=== PATIENT | male | born 1965 | race Caucasian/White ===

== ENCOUNTER → 2019-11-25 | Outpatient (CLI) | payer OTHER, SELFPAY | END | disposition home or self-care (01) | LOC: MTDU 17:15 | PROVIDERS: PCP Internal Medicine; Referring Provider Nurse Practitioner; Visit Provider Nurse Practitioner | DX: Z20.828 Contact with and (suspected) exposure to other viral communicable diseases (principal) | CPT/HCPCS: 87635; C9803; U0003 ==

== ENCOUNTER 2021-09-13 23:51 | Emergency (ER) | payer OTHER, SELFPAY ==
[2021-09-13 23:51] VITALS: BP 125/92; PULSE 76; RESP 15; TEMP 36.9; O2SAT 99
[2021-09-14 00:21] LABS: Anion Gap 6 (5-15); BUN 15 mg/dL (7-18); BUN/Creat Ratio 13.2 RATIO (10-20); Calcium,Total 8.8 mg/dL (8.5-10.1); Chloride 108 mmol/L (98-107); Creatinine, Serum 1.14 mg/dL (0.70-1.30); EST Glomerular Filtration Rate 71 mL/min (>60); Est Glom Filt Rate - Afr Amer 86 mL/min (>60); Estimated Creatinine Clearance 74.94 ml/min; Glucose 99 mg/dL (74-106); Sodium Level 140 mmol/L (136-145)
[2021-09-14 00:25] LABS: Absolute Lymphocyte Count 2.74 X10^3/uL (0.83-4.51); Absolute Neutrophil Count 7.1 X10^3/uL (2.0-7.7); Basophil# 0.06 X10^3/uL; Basophil% 0.4 % (0-1); Differential Comment SCANNED; Differential Indicated SCAN CRITERIA MET; Eosinophil# 5.05 X10^3/uL; Eosinophils% 31.6 % (0-5); Hematocrit 45.7 % (40-54); Hemoglobin 15.6 g/dL (13.0-16.5); Lymphocyte # 2.74 X10^3/ul (0.83-4.51); Lymphocyte % 17.1 % (19-41); Mean Corp Hgb Conc 34.1 g/dL (32-36); Mean Corpuscular Hgb 30.4 pg (27.0-32.0); Mean Corpuscular Volume 88.9 fL (80-94); Mean Platelet Vol. 8.9 fl (6.2-12.0); Monocyte# 1.03 X10^3/uL; Monocyte% 6.4 % (0-10); NRBC Flagged by Analyzer 0 % (0-5); Neutrophil # 7.06 X10^3/uL (2.7-7.7); Neutrophil % 44.2 % (47-70); POSITIVE DIFFERENTIAL YES; Platelet Count 228 K/mm3 (150-450); RBC Distribution Width CV 12.7 % (11.6-14.6); RBC Distribution Width SD 41.7 fl (35.1-43.9); Red Blood Count 5.14 M/mm3 (4.6-6.2)
[2021-09-14 00:29] LABS: Bacteria 0 SEEN /hpf (None Seen); Color, Urine Yellow (Yellow); Glucose, Dipstick Normal (Normal); Ketone-Dipstick Negative (Negative); Leukocyte Esterase-Dipstick Negative /ul (Negative); Mucous, Urine 0 SEEN /hpf (<or=2+); Nitrite-Dipstick Negative (Negative); Occult Blood-Urine Negative /ul (Negative); Protein-Dipstick Negative (Negative); Red Blood Cells-Urine 0 SEEN /hpf (0-5); Squamous Epithelial Cells - UA 0 SEEN /hpf (0-5); Urine Bilirubin Dipstick Negative (Negative); Urine Clarity Clear (Clear); Urine Urobilinogen Normal (Normal); White Blood Cells 0 SEEN /hpf (0-5)
[2021-09-14] MEDS: Ondansetron 4 MG/2 ML Vial IV (00:31)
[2021-09-14] MEDS: 0.9% Normal Saline 1,000 ML 999 ML IV (00:31)
[2021-09-14] MEDS: Famotidine 200 MG/20 ML MDV 20 MG in 0.9% Normal Saline (Pres. free 8 ML 300 MG IV (00:34)
[2021-09-14 00:49] LABS: AST(SGOT) 19 U/L (15-37); Alanine Aminotransfer ALT/SGPT 35 U/L (16-61); Albumin, Serum 3.8 g/dL (3.2-5.0); Alkaline Phosphatase 77 U/L (45-117); Bilirubin, Direct 0.17 mg/dL (0.00-0.30); Globulin 3.3 g/dL (2.2-4.2); Lipase 175 U/L (73-393); Protein, Total 7.1 g/dL (6.4-8.2)
--- NOTE | 2021-09-14 00:55 | CT_ITS ---
STUDY: CT ABDOMEN AND PELVIS WITH CONTRAST REASON FOR EXAM: Male, 55 years old. abd pain RADIATION DOSAGE (If Supplied By Facility): CTDIvol = ( 19.11 ) mGy, DLP = ( 1934.91 ) mGycm TECHNIQUE: Transaxial images were obtained from the dome of the diaphragm to the symphysis pubis without oral contrast. IV 100mL Isovue-300 was administered. Sagittal and coronal images were reconstructed. Individualized dose optimization techniques were used for this CT. COMPARISON: None. FINDINGS: The visualized lung bases are unremarkable. The visualized portions of the heart are within normal limits. Normal liver. Normal gallbladder and extrahepatic biliary system. Normal spleen. Normal pancreas. Normal bilateral adrenal glands. Normal right kidney. Normal left kidney. Normal visualized stomach. There is thickening of the murphy of small bowel loops in the jejunum may represent inflammatory bowel disease. There is small amount of free fluid in the abdomen and pelvis. Normal colon. The appendix is visualized and appears normal. Normal abdominal aorta. Normal inferior vena cava. Normal retroperitoneum. There is thickening of the murphy of the urinary bladder suggesting cystitis. Normal abdominal wall. Normal osseous structures. CT/Abdomen/Pelvis W IV Cont ONLY IMPRESSION: There is thickening of the murphy of small bowel loops in the jejunum may represent inflammatory bowel disease. There is small amount of free fluid in the abdomen and pelvis. There is thickening of the murphy of the urinary bladder suggesting cystitis. Electronically Signed: Lior Bose MD at 1:55 EDT ,
--- NOTE | 2021-09-14 02:04 | EDS_ITS ---
HPI History of Present Illness Chief Complaint: Abd Pain Narrative Narrative: Patient is a 55-year-old male who was recently diagnosed with eosinophilic esophagitis. He states that his stomach just felt off throughout the day but then after dinner he developed generalized abdominal discomfort with bouts of nausea. He denies any vomiting or constipation and does state he has had 1 loose stool. He reports secondary to the worsening symptoms he presents for evaluation. [facility] Medical History (Updated 09/14/21 @ 02:[address] Jerome Smith, DO) Hypertension Normal colonoscopy Home Medications omeprazole 20 mg capsule,delayed release 20 mg PO DAILY 08/24/13 [History Last Taken 08/23/13] cyanocobalamin (vitamin B-12) 1,000 mcg tablet (Vitamin B-12) 1,000 mcg PO DAILY 10/28/16 [History Last Taken Unknown] atenolol 25 mg tablet 25 mg PO DAILY 09/14/21 [History Last Taken Unknown] famotidine 20 mg tablet (Pepcid) 20 mg PO BID 30 days #60 tabs 09/14/21 [Rx Last Taken Unknown] ondansetron 4 mg disintegrating tablet 4 mg PO TID PRN nausea and vomiting #21 tabs 09/14/21 [Rx Last Taken Unknown] Allergy/AdvReac Type Severity Reaction Status Date / Time No Known Allergies Allergy Verified 09/13/21 23:56 Surgical History (Updated 09/13/21 @ 23:57 by Allison Kisney) Hx of tonsillectomy Social History Smoking Status: Never smoker [facility] ED Constitutional Constitutional ED: Denies chills or fever(s) ENT ENT ED: Denies sore throat Cardiovascular Cardiovascular: Denies chest pain Respiratory/Chest Respiratory/Chest: Denies cough or dyspnea Gastrointestinal Gastrointestinal: Reports abdominal pain, diarrhea and nausea; Denies vomiting Genitourinary Genitourinary ED: Denies dysuria Musculoskeletal Musculoskeletal: Denies myalgias Integumentary Denies rash Neurologic Neurologic: Denies headache(s) Hematologic/Lymphatic Hematologic/Lymphatic: Denies easy bleeding or easy bruising EXAM Physical Exam Const Vital Signs: 09/13/21 23:51 09/14/21 02:16 09/14/21 02:16 Temperature 98.5 F Temperature Source Oral Pulse Rate 76 76 78 Respiratory Rate 15 16 16 Blood Pressure 125/92 H 128/88 H 128/88 H Blood Pressure Mean 103 101 Pulse Ox 99 99 99 Oxygen Delivery Method Room Air Positive well nourished and well developed General Appearance ED: well developed HEENT Reports moist mucous membranes Eyes PERRL and EOMs intact bilaterally Neck supple Resp normal respiratory effort and clear to auscultation bilaterally Cardio regular rate and regular rhythm Rate: other Other Details: Radial pulses are plus 2 out of 4 bilaterally are equal and symmetric GI non-distended GI Narrative: Abdomen is soft and nondistended with normoactive bowel sound. There is mild pain on palpation in the midepigastric region without voluntary guarding or rigidity. No pulsatile mass or fluid wave. No hernia noted Auscultation: normoactive bowel sounds Palpation: soft Extremity normal to inspection Neuro oriented x3 and CN's II-XII intact bilaterally Sensorium / Orientation: alert Psych mental status grossly normal Skin no rashes or lesions noted MDM MDM MDM Narrative Medical decision making narrative: Patient presented to the ER afebrile with a soft nonsurgical abdomen so I felt no need for an emergent CT scan but basic blood work was ordered, this showed leukocytosis with white count of 16 as well as eosinophil elevation with a value of 31.6. Secondary to these markers I elected to perform a CT with IV contrast. CT scan showed inflammation within the jejunum which correlates with where his pain is at but there is no blockage or perforation or abscess formation. I do feel patient most likely has a viral stomach infection leading to elevation of his pro inflammatory markers such as his eosinophil count and white blood cell count. Patient was given IV hydration Zofran and Pepcid and did report resolution of symptoms. On reevaluation he is resting comfortably and his abdomen remains soft and nonsurgical. Therefore at this time with work-up revealing no obvious perforation obstruction or infectious process I do not feel there is need for inpatient treatment and patient is otherwise safe for discharge Lab Data Attestation: I reviewed the patient's lab results. Labs: Laboratory Results - last 24 hr 09/13/21 09/14/21 09/14/21 23:58 00:00 00:00 WBC 16.0 H RBC 5.14 Hgb 15.6 Hct 45.7 MCV 88.9 MCH 30.4 MCHC 34.1 RDW Std Deviation 41.7 RDW Coeff of Dima 12.7 Plt Count 228 MPV 8.9 Immature Gran % (Auto) 0.300 Neut % (Auto) 44.2 L Lymph % (Auto) 17.1 L [place] % (Auto) 6.4 Eos % (Auto) 31.6 H Baso % (Auto) 0.4 Absolute Neuts (auto) 7.1 Absolute Lymphs (auto) 2.74 Nucleated RBC % 0 Differential Comment SCANNED Diff Path Review May foll Sodium 140 Potassium 4.0 Chloride 108 H Carbon Dioxide 26.0 Anion Gap 6 BUN 15 Creatinine 1.14 Estim Creat Clear Calc 74.94 Est GFR (MDRD) Af Amer 86 Est GFR (MDRD) Non-Af 71 BUN/Creatinine Ratio 13.2 Glucose 99 Calcium 8.8 Total Bilirubin 1.10 H Direct Bilirubin 0.17 AST 19 ALT 35 Alkaline Phosphatase 77 Total Protein 7.1 Albumin 3.8 Globulin 3.3 Lipase 175 Urine Color Urine Clarity Urine pH Ur Specific [place] Urine Protein Urine Glucose (UA) Urine Ketones Urine Occult Blood Urine Nitrite Urine Bilirubin Urine Urobilinogen Ur Leukocyte Esterase Urine RBC Urine WBC Ur Squamous Epith Cells Urine Bacteria Urine Mucus 09/14/21 00:20 WBC RBC Hgb Hct MCV MCH MCHC RDW Std Deviation RDW Coeff of Dima Plt Count MPV Immature Gran % (Auto) Neut % (Auto) Lymph % (Auto) [place] % (Auto) Eos % (Auto) Baso % (Auto) Absolute Neuts (auto) Absolute Lymphs (auto) Nucleated RBC % Differential Comment Diff Path Review Sodium Potassium Chloride Carbon Dioxide Anion Gap BUN Creatinine Estim Creat Clear Calc Est GFR (MDRD) Af Amer Est GFR (MDRD) Non-Af BUN/Creatinine Ratio Glucose Calcium Total Bilirubin Direct Bilirubin AST ALT Alkaline Phosphatase Total Protein Albumin Globulin Lipase Urine Color Yellow Urine Clarity Clear Urine pH 6.0 Ur Specific [place] 1.020 Urine Protein Negative Urine Glucose (UA) Normal Urine Ketones Negative Urine Occult Blood Negative Urine Nitrite Negative Urine Bilirubin Negative Urine Urobilinogen Normal Ur Leukocyte Esterase Negative Urine RBC 0 SEEN Urine WBC 0 SEEN Ur Squamous Epith Cells 0 SEEN Urine Bacteria 0 SEEN Urine Mucus 0 SEEN Radiography Diagnostic Testing: Clinical Impression(s) from Imaging Studies Abdomen/Pelvis CT 09/14/21 00:55 IMPRESSION: There is thickening of the murphy of small bowel loops in the jejunum may represent inflammatory bowel disease. There is small amount of free fluid in the abdomen and pelvis. There is thickening of the murphy of the urinary bladder suggesting cystitis. Electronically Signed: Lior Bose MD at 1:55 EDT , Discharge Plan Triage Chief Complaint: Abd Pain ED Provider: Jerome Smith Dx/Rx/DC Orders Clinical Impression: Nonspecific abdominal pain, Eosinophilia, unspecified Instructions: Abdominal Pain, Eosinophilic Esophagitis (EoE) Prescriptions: New famotidine [Pepcid] 20 mg tablet 20 mg PO BID 30 Days Qty: 60 0RF ondansetron 4 mg tablet,disintegrating 4 mg PO TID PRN (Reason: nausea and vomiting) Qty: 21 0RF No Action omeprazole 20 MG capsule 20 mg PO DAILY Label Comments: acid reflux cyanocobalamin (vitamin B-12) [Vitamin B-12] 1,000 MCG tablet 1,000 mcg PO DAILY atenolol 25 mg tablet 25 mg PO DAILY Label Comments: TAKE 1 TABLET BY MOUTH ONCE DAILY Primary Care Provider: Brandy Rodriguez Referrals: Brandy Rodriguez MD [Primary Care Provider] - Activity Restrictions/Additional Instructions: For the next 5 to 7 days please add Pepcid twice a day on top of the omeprazole secondary to your elevated eosinophil count. Please return to the ER should you have any further concerns Disposition Disposition: Home, Self Care Discharge Date/Time: 09/14/21 02:19
[2021-09-14 02:16] VITALS: BP 128/88; PULSE 76; PULSE 78; RESP 16; O2SAT 99
[2021-09-14 12:55] LABS: Pathologist Review Reviewed
== END 2021-09-14 02:19 | disposition home or self-care (01) ==
PROVIDERS: Emergency Provider Emergency Medicine; PCP Internal Medicine; Visit Provider Emergency Medicine
DX: R10.9 Unspecified abdominal pain (principal); I10 Essential (primary) hypertension; R11.0 Nausea; R19.7 Diarrhea, unspecified; K20.0 Eosinophilic esophagitis; Z79.899 Other long term (current) drug therapy
CPT/HCPCS: 74177; 80048; 80076; 81001; 83690; 85025; 87428; 96361; 96374; 96375; 99282; J7030; Q9967; A4216; J2405; J3490

== ENCOUNTER 2021-09-18 23:48 | Emergency (ER) | payer OTHER, SELFPAY ==
[2021-09-18 23:48] VITALS: BP 136/94; PULSE 80; RESP 15; TEMP 36.6; O2SAT 99; BMI 29.5
--- NOTE | 2021-09-19 00:07 | EDS_ITS ---
HPI HPI - GI History of Present Illness Chief Complaint: Abd Pain Detail of Chief Complaint: Epigastric pressure sensation Informant: patient and spouse/S.O. Abdominal Pain/Flank Pain Onset: Days (Worse this evening) Context: Gradual Onset Timing: Continuous and Waxes and wanes Quality: - (Pressure sensation) Location: Epigastric Current Severity: Mild Maximum Severity: Moderate Worsened by: Food; Not Worsened By Movement Relieved by: Nothing Nausea/Vomiting/Emesis GI Symptom: Positive for Nausea; Negative for Vomiting Onset: Days Diarrhea/Melena/Hematochezia GI Symptom: Negative for Diarrhea, Melena or Hematochezia Associated Symptoms Associated Symptoms: Negative for Dysuria, Frequency or Hematuria Narrative Narrative: Patient is a 55-year-old male who was seen on September 13 and was found to have an elevated white count with 31% eosinophils. CT of the abdomen reveals inflammatory changes of the jejunum and the urinary bladder. He is scheduled to see a perinatal breastfeeding assistant at [facility] this coming week. He denies black or maroon-colored stool. He denies cardiac respiratory symptoms. He is taking Pepcid. He is on atenolol for hypertension. He also states he has prediabetes. There is family history of diabetes. He denies allergies to pain medicine. He denied fever, chills night sweats. He denied weight loss or weight gain. Prior similar symptoms: Yes Recent Illness/Hospitalization: Yes [facility] Medical History Hypertension Normal colonoscopy Home Medications omeprazole 20 mg capsule,delayed release 20 mg PO DAILY 08/24/13 [History Last Taken 08/23/13] cyanocobalamin (vitamin B-12) 1,000 mcg tablet (Vitamin B-12) 1,000 mcg PO DAILY 10/28/16 [History Last Taken Unknown] atenolol 25 mg tablet 25 mg PO DAILY 09/14/21 [History Last Taken Unknown] famotidine 20 mg tablet (Pepcid) 20 mg PO BID 30 days #60 tabs 09/14/21 [Rx Last Taken Unknown] ondansetron 4 mg disintegrating tablet 4 mg PO TID PRN nausea and vomiting #21 tabs 09/14/21 [Rx Last Taken Unknown] ondansetron 4 mg disintegrating tablet 4 mg PO Q8H PRN PRN Nausea #10 tabs 09/19/21 [Rx Last Taken Unknown] oxycodone-acetaminophen 5 mg-325 mg tablet 1 tab PO Q6H PRN PRN pain 5 days #20 TABLETS 09/19/21 [Rx Last Taken Unknown] Allergy/AdvReac Type Severity Reaction Status Date / Time No Known Allergies Allergy Verified 09/13/21 23:56 Family History no significant family his no significant family history (Maternal side positive for diabetes) Surgical History Hx of tonsillectomy Social History (Updated 09/19/21 @ 00:[address] Haroldo Mosher MD) household members: spouse Smoking Status: Never smoker substance use type: does not use ROS ROS ED Constitutional Constitutional ED: Denies chills, fever(s), subjective, sweats or weight loss ENT ENT ED: Denies ear pain, rhinorrhea or sore throat Cardiovascular Cardiovascular: Denies chest pain, orthopnea, palpitations, paroxysmal nocturnal dyspnea or racing heartbeat Respiratory/Chest Respiratory/Chest: Denies cough, dyspnea, dyspnea on exertion, orthopnea or paroxysmal nocturnal dyspnea Gastrointestinal Gastrointestinal: Reports abdominal pain and nausea; Denies constipation, diarrhea, melena or vomiting Genitourinary Genitourinary ED: Denies dysuria, hematuria or urinary frequency Musculoskeletal Musculoskeletal: Denies arthralgias, back pain, myalgias or neck pain Neurologic Neurologic: Denies headache(s) or paresthesias Endocrine Endocrinology: Denies polydipsia, polyphagia or polyuria Hematologic/Lymphatic Hematologic/Lymphatic: Denies easy bleeding or easy bruising EXAM Physical Exam Const Vital Signs: 09/18/21 23:48 Temperature 97.8 F Temperature Source Temporal Pulse Rate 80 Respiratory Rate 15 Blood Pressure 136/94 H Blood Pressure Mean 108 Pulse Ox 99 Oxygen Delivery Method Room Air Positive well nourished and well developed General Appearance ED: well developed and NAD; Negative for pallor HEENT Reports dry mucous membranes HEENT Narrative: Ears normal. Nares patent. Uvula midline. No erythema XA the posterior pharynx. Mouth ED: Yes dry mucous membranes Mouth: dry mucous membranes Eyes PERRL and EOMs intact bilaterally General Eye ED: Negative for pale conjunctiva or scleral icterus Neck no lymphadenopathy, supple and no JVD Neck Narrative: Trachea is midline. Resp normal respiratory effort and clear to auscultation bilaterally Cardio regular rate, regular rhythm, S1 normal heart sound, S2 normal heart sound and no murmurs GI no masses; Negative for non-tender or non-distended Inspection: abdominal distention Auscultation: hyperactive bowel sounds Palpation: soft and tender epigastric; Negative for guarding, rigid, hepatomega ly, splenomegaly, hernia, mass or pulsatile mass Back/Spine no CVA tenderness Cervical Spine: Negative for cervical spine tenderness Thoracic Spine / Upper Back: Negative for thoracic spinal tenderness Lumbar Spine / Lower Back: Negative for lumbar spinal tenderness Extremity full ROM General Extremety ED: Negative for edema or tenderness General Extremity: Negative for edema Neuro CN's II-XII intact bilaterally, moves all extremities and no sensory deficits noted Sensorium / Orientation: alert Psych mental status grossly normal and thought process normal Skin no wounds General Skin Exam: Negative for jaundice or pallor Lesions: no lesions Rashes: no rashes MDM MDM MDM Narrative Medical decision making narrative: With remote history of GERD and CAT scan that revealed inflammation of the jejunum suspect this either represents a gastritis/esophagitis versus eosinophilic inflammation of the jejunum causing his pain. He was medicated w ith 4 mg of Zofran and morphine IV push. Blood work was obtained to compare to prior. Patient is now vomiting. Zofran was ordered. If he is unable to take pills or drink liquids he will require admission for acute pancreatitis. Patient was reassessed at 0131. He states his nausea is resolved. His pain is under much better control. He was discharged prescription for Zofran and Percocet. Lab Data Attestation: I reviewed the patient's lab results. Lab results narrative: White count is elevated. There is evidence of eosinophilia. Labs are similar to results from prior visit last week. Lipase is elevated which is a new finding. Labs: Laboratory Results - last 24 hr 09/19/21 09/19/21 09/19/21 00:15 00:15 00:38 WBC 13.2 H RBC 4.79 Hgb 14.5 Hct 42.2 MCV 88.1 MCH 30.3 MCHC 34.4 RDW Std Deviation 41.0 RDW Coeff of Dima 12.6 Plt Count 241 MPV 8.7 Immature Gran % (Auto) 0.300 Neut % (Auto) 40.9 L Lymph % (Auto) 13.7 L [place] % (Auto) 5.5 Eos % (Auto) 39.3 H Baso % (Auto) 0.3 Absolute Neuts (auto) 5.4 Absolute Lymphs (auto) 1.80 Nucleated RBC % 0 Sodium 139 Potassium 3.5 Chloride 109 H Carbon Dioxide 24.0 Anion Gap 6 BUN 16 Creatinine 1.20 Estim Creat Clear Calc 71.19 Est GFR (MDRD) Af Amer 81 Est GFR (MDRD) Non-Af 67 BUN/Creatinine Ratio 13.3 Glucose 115 H Calcium 8.6 Total Bilirubin 0.60 AST 36 ALT 44 Alkaline Phosphatase 74 Total Protein 7.1 Albumin 3.7 Globulin 3.4 Albumin/Globulin Ratio 1.1 Lipase 1087 H Urine Color Yellow Urine Clarity Clear Urine pH 7.0 Ur Specific [place] 1.010 Urine Protein 15 H Urine Glucose (UA) Normal Urine Ketones Negative Urine Occult Blood Negative Urine Nitrite Negative Urine Bilirubin Negative Urine Urobilinogen 1 H Ur Leukocyte Esterase Negative Urine RBC 0 SEEN Urine WBC 0 SEEN Ur Squamous Epith Cells 0 SEEN Urine Bacteria 0 SEEN Urine Mucus 0 SEEN Discharge Plan Triage Chief Complaint: Abd Pain ED Provider: Haroldo Mosher Dx/Rx/DC Orders Clinical Impression: Acute pancreatitis, Eosinophilia, Allergic jejunitis, Nausea & vomiting Instructions: ED Pancreatitis Prescriptions: New oxycodone-acetaminophen [oxycodone-acetaminophen] 5-325 mg tablet 1 tab PO Q6H PRN PRN (Reason: pain) 5 Days Qty: 20 0RF ondansetron [ondansetron] 4 mg tablet,disintegrating 4 mg PO Q8H PRN PRN (Reason: Nausea) Qty: 10 0RF No Action omeprazole 20 MG capsule 20 mg PO DAILY Label Comments: acid reflux cyanocobalamin (vitamin B-12) [Vitamin B-12] 1,000 MCG tablet 1,000 mcg PO DAILY atenolol 25 mg tablet 25 mg PO DAILY Label Comments: TAKE 1 TABLET BY MOUTH ONCE DAILY famotidine [Pepcid] 20 mg tablet 20 mg PO BID 30 Days Qty: 60 0RF ondansetron 4 mg tablet,disintegrating 4 mg PO TID PRN (Reason: nausea and vomiting) Qty: 21 0RF Primary Care Provider: Brandy Rodriguez Referrals: Brandy oRdriguez MD [Primary Care Provider] - As Needed Disposition Disposition: Home, Self Care
[2021-09-19] MEDS: Morphine 4 MG/ML Syringe IV ×2 (00:17→01:03)
[2021-09-19] MEDS: Ondansetron 4 MG/2 ML Vial IV (00:17)
[2021-09-19 00:22] LABS: Absolute Neutrophil Count 5.4 X10^3/uL (2.0-7.7); Basophil# 0.04 X10^3/uL; Basophil% 0.3 % (0-1); Eosinophils% 39.3 % (0-5); Hematocrit 42.2 % (40-54); Hemoglobin 14.5 g/dL (13.0-16.5); Lymphocyte % 13.7 % (19-41); Mean Corp Hgb Conc 34.4 g/dL (32-36); Mean Corpuscular Hgb 30.3 pg (27.0-32.0); Mean Corpuscular Volume 88.1 fL (80-94); Mean Platelet Vol. 8.7 fl (6.2-12.0); Monocyte# 0.72 X10^3/uL; Monocyte% 5.5 % (0-10); NRBC Flagged by Analyzer 0 % (0-5); Neutrophil # 5.38 X10^3/uL (2.7-7.7); Neutrophil % 40.9 % (47-70); POSITIVE DIFFERENTIAL YES; Platelet Count 241 K/mm3 (150-450); RBC Distribution Width CV 12.6 % (11.6-14.6); Red Blood Count 4.79 M/mm3 (4.6-6.2); White Blood Count 13.2 K/mm3 (4.4-11.0)
[2021-09-19 00:38] LABS: ALB/GLOB Ratio 1.1 RATIO (0.9-2.4); AST(SGOT) 36 U/L (15-37); Alanine Aminotransfer ALT/SGPT 44 U/L (16-61); Albumin, Serum 3.7 g/dL (3.2-5.0); Alkaline Phosphatase 74 U/L (45-117); Anion Gap 6 (5-15); BUN 16 mg/dL (7-18); BUN/Creat Ratio 13.3 RATIO (10-20); Calcium,Total 8.6 mg/dL (8.5-10.1); Chloride 109 mmol/L (98-107); EST Glomerular Filtration Rate 67 mL/min (>60); Est Glom Filt Rate - Afr Amer 81 mL/min (>60); Estimated Creatinine Clearance 71.19 ml/min; Globulin 3.4 g/dL (2.2-4.2); Glucose 115 mg/dL (74-106); Lipase 1087 U/L (73-393); Potassium 3.5 mmol/L (3.5-5.1); Protein, Total 7.1 g/dL (6.4-8.2); Sodium Level 139 mmol/L (136-145)
[2021-09-19 00:46] LABS: Bacteria 0 SEEN /hpf (None Seen); Color, Urine Yellow (Yellow); Glucose, Dipstick Normal (Normal); Ketone-Dipstick Negative (Negative); Leukocyte Esterase-Dipstick Negative /ul (Negative); Mucous, Urine 0 SEEN /hpf (<or=2+); Nitrite-Dipstick Negative (Negative); Occult Blood-Urine Negative /ul (Negative); Protein-Dipstick 15 mg/dl (Negative); Red Blood Cells-Urine 0 SEEN /hpf (0-5); Squamous Epithelial Cells - UA 0 SEEN /hpf (0-5); Urine Bilirubin Dipstick Negative (Negative); Urine Clarity Clear (Clear); Urine Urobilinogen 1 mg/dl (Normal); White Blood Cells 0 SEEN /hpf (0-5)
[2021-09-19 00:46] LABS: Eosinophil# 5.17 X10^3/uL
[2021-09-19 00:47] LABS: Differential Indicated SCAN CRITERIA MET
== END 2021-09-19 02:01 | disposition home or self-care (01) ==
PROVIDERS: Emergency Provider Emergency Medicine; PCP Internal Medicine; Visit Provider Emergency Medicine
DX: K85.90 Acute pancreatitis without necrosis or infection, unspecified (principal); I10 Essential (primary) hypertension; D72.10 Eosinophilia, unspecified; R73.03 Prediabetes; Z79.899 Other long term (current) drug therapy
CPT/HCPCS: 80053; 81001; 83690; 85025; 96374; 96375; 96376; 99283; A4216; J2405

== ENCOUNTER 2023-05-15 00:08 | Emergency (ER) | payer OTHER, SELFPAY ==
[2023-05-15] VITALS (12 sets, daily range): BP systolic 115–159; BP diastolic 77–137; PULSE 65–81; RESP 12–22; TEMP 36.2; O2SAT 93–100; BMI 29.5
--- NOTE | 2023-05-15 00:16 | RAD_ITS ---
INDICATION: chest pain EXAMINATION/TECHNIQUE: X-RAY - portable upright AP chest x-ray COMPARISON: 04/05/2009 FINDINGS: LINES/DEVICES: None. LUNGS: No consolidation, edema or effusion. No pneumothorax. MEDIASTINUM AND CARDIOVASCULAR STRUCTURES: Cardiac silhouette not enlarged. Central airways and mediastinal contour are unremarkable. BONES AND SOFT TISSUES: No acute changes. RAD/Chest 1 View (Portable) IMPRESSION: No radiographic evidence of acute cardiopulmonary disease. Electronically Signed: Shawn Archibald MD at 0:41 EDT ,
--- NOTE | 2023-05-15 00:16 | EKG12_ITS ---
Test Reason : CP Blood Pressure : / mmHG Vent. Rate : 076 BPM Atrial Rate : 076 BPM P-R Int : 148 ms QRS Dur : 100 ms QT Int : 402 ms P-R-T Axes : 030 -12 017 degrees QTc Int : 452 ms Normal sinus rhythm Incomplete right bundle branch block Borderline ECG Confirmed by KIN SIMMONS, MARLYS ([id number]), news video editor HARSHA ALEXIS ([id number]) on 05/16/2023 9:47:03 AM Referred By: KARY Confirmed By:MARLYS SANDERSON MD
--- NOTE | 2023-05-15 00:17 | EDS_ITS ---
HPI History of Present Illness Chief Complaint: Chest Pain [facility] Medical History (Updated 05/15/23 @ 00:11 by Rahat Jaimes) GERD (gastroesophageal reflux disease) Hypertension Normal colonoscopy Home Medications omeprazole 20 mg capsule,delayed release 20 mg PO DAILY 08/24/13 [History Last Taken 08/23/13] cyanocobalamin (vitamin B-12) 1,000 mcg tablet (Vitamin B-12) 1,000 mcg PO DAILY 10/28/16 [History Last Taken Unknown] atenolol 25 mg tablet 25 mg PO DAILY 09/14/21 [History Last Taken Unknown] ondansetron 4 mg disintegrating tablet 4 mg PO Q8H PRN PRN Nausea #10 tabs 05/15/23 [Rx Last Taken Unknown] Allergy/AdvReac Type Severity Reaction Status Date / Time No Known Allergies Allergy Verified 05/15/23 00:13 Surgical History Hx of tonsillectomy Social History (Updated 09/19/21 @ 00:[address] Haroldo Mosher MD) household members: spouse Smoking Status: Never smoker substance use type: does not use EXAM Physical Exam Const Vital Signs: 05/15/23 00:09 05/15/23 00:11 05/15/23 00:25 Temperature 97.2 F L Temperature Source Temporal Pulse Rate 70 Respiratory Rate 16 Respiratory Effort Normal Respiratory Pattern Normal Blood Pressure 143/106 H Blood Pressure Mean 118 Pulse Ox 99 Oxygen Delivery Method Room Air Room Air 05/15/23 01:08 05/15/23 00:18 05/15/23 00:30 Temperature Temperature Source Pulse Rate 66 69 73 Respiratory Rate 19 H 15 15 Respiratory Effort Respiratory Pattern Blood Pressure 120/88 H 159/137 H Blood Pressure Mean 98 144 Pulse Ox 93 100 99 Oxygen Delivery Method Room Air Room Air 05/15/23 00:45 05/15/23 01:00 05/15/23 01:15 Temperature Temperature Source Pulse Rate 65 68 Respiratory Rate 12 22 H Respiratory Effort Respiratory Pattern Blood Pressure 125/88 H 120/88 H 129/94 H Blood Pressure Mean 100 98 105 Pulse Ox 98 94 Oxygen Delivery Method Room Air 05/15/23 01:30 05/15/23 01:45 05/15/23 02:00 Temperature Temperature Source Pulse Rate 81 72 74 Respiratory Rate 22 H 17 15 Respiratory Effort Respiratory Pattern Blood Pressure 120/93 H 128/86 H 122/84 H Blood Pressure Mean 101 95 98 Pulse Ox 96 97 95 Oxygen Delivery Method Room Air 05/15/23 02:53 05/15/23 03:14 Temperature 97.1 F L Temperature Source Pulse Rate 66 71 Respiratory Rate 19 H 19 H Respiratory Effort Respiratory Pattern Blood Pressure 118/86 H 115/77 Blood Pressure Mean 96 89 Pulse Ox 94 95 Oxygen Delivery Method Room Air [facility] [place] Narr[place] Medical decision making narrative: HISTORY OF PRESENT ILLNESS: 57-year-old presents with chest pain notes pain in the epigastrium. Notes nausea started after eating food tonight. No similar symptoms several times in the past. Notes being worked up fully by a GI doctor and teacher of the hearing impaired with no findings. This last was undertaken in 2021. He notes being told his eosinophils were high. He notes tonight after eating dinne he developed epigastric discomfort. He states he ate a hotdog and developed epigastric burning that was worse with lying flat at night. He notes some exertional component as well as shortness of breath. He denies syncope. Denies focal weakness or numbness. No urinary complaints. No recent cough or fever. No recent bleeding diathesis. No recent volume loss such as diarrhea or vomiting. No melena or hematochezia noted. Patient denies sudden onset of pain, no tearing sensation, no migratory symptoms, no new numbness, weakness or loss of sensation. Patient denies family history or personal history of Marfan syndrome or Dawood-Danlos. The patient denies recent surgery in the last 4 weeks or immobilization in the last 3 days, denies previous diagnosis of DVT or PE, hemoptysis, unilateral leg swelling or malignancy with treatment the last 6 months. No estrogen use noted. REVIEW OF SYSTEMS: All other systems reviewed and are negative except as noted in the history of present illness. At least 10 review of systems reviewed and are negative except as noted in history of present illness. PHYSICAL EXAM: Nursing triage notes reviewed, Vital signs reviewed Constitutional: please see mdm HENT: MMM Eyes: Pupils equal round and reactive to light, Extraocular muscles intact Neck: No stridor, no JVD, full neck ROM Lungs: Clear to auscultation, No wheezing or rales. No increased work of breathing, no conversational dyspnea, no accessory muscle use, no nasal flaring. No respiratory distress noted Heart: Regular rate and rhythm, No murmurs, No rubs and No gallops, 2+ distal pulses (radial, femoral, posterior tibial) in all extremities Abdomen: Soft, there is no tenderness, rigidity, rebound or guarding, no obvious peritoneal signs, no palpable pulsatile abdominal masses, no auscultated abdominal bruit : No CVAT Extremities: No edema Neuro: No focal neurological deficits, cranial nerves II through XII intact, 5/5 strength in all extremities. Intact sensation to light touch in all extremities, 2+ reflexes bilateral patella tendons. Normal gait. No ataxia. Skin: No rash or lesions noted MEDICAL DECISION MAKING: Chief Complaint: Chest pain External records reviewed: No recent cardiac catheterizations or stress test noted in the chart Factors affecting care:Hypertension, GERD Social determinants of health: Denies cocaine or methamphetamine History obtained from others: Patient's Consults: none MDM Narrative: Patient was hemodynamically stable, afebrile and nontoxic-appearing. Abdomen was soft was slightly tender in the epigastrium however there is no peritoneal signs. There is no focal cardiopulmonary abnormalities. Patient appears comfortable is in no acute distress. I considered the following differential diagnosis: ACS, arrhythmia, anemia, electrolyte abnormality, pneumonia, pneumothorax, GI etiology, PE PE less likely given low risk Wells score. Aortic dissection is thought to be less likely given no sudden ripping or tearing pain, migratory pain, palpable pulse inequalities, no focal neurologic deficits concurrent with chest pain. Chance of dissection less than 02/1999. Pericarditis less likely given no pathognomonic EKG changes (no diffuse ST elevations, ND depressions). GI etiology (i.e. Boerhaave syndrome) less likely given no chest or neck crepitus, no vomiting or forced retching. I considered perforation, obstruction or other acute surgical process in the abdomen as a potential etiology however the patient had a benign abdominal exam. No indication for advanced imaging of the abdomen pelvis at this time. ALL IMAGES (IF OBTAINED) HAVE BEEN PERSONALLY REVIEWED AND INTERPRETED BY M AARONELF. EKG with normal sinus rhythm, left axis deviation, normal intervals, no obvious STEMI I have personally reviewed the patient's chest x-ray. Chest x-ray is unremarkable for pulmonary edema, pneumothorax, pneumonia or focal cardiopulmonary abnormality. BMP without evidence of significant electrolyte abnormalities, no anion gap, no acute kidney injury. High-sensitivity troponin is negative, no evidence of myocardial ischemiax2 CBC with leukocytosis suggestive of systemic summation, no anemia or thrombocytopenia Lipase slightly elevated not consistent with acute pancreatitis LFTs show no evidence of hepatobiliary pathology. The synthesis of the patient's history, physical exam, and not consistent with perforation or obstruction His labs did not reveal evidence of hepatobiliary obstruction, acute pancreatitis. Patient had no urinary complaints to suggest pyelonephritis or nephrolithiasis. Remainder patient's labs and images do not suggest evidence of pneumothorax, pneumonia, ACS, arrhythmia, myocardial ischemia. No clear life-limiting etiology to be ascertained. Potential etiology may be eosinophilic esophagitis versus other [id number] GI illnesses such as gastritis or esophagitis patient has a low risk heart score is appropriate discharge home with close outpatient follow-up for further testing. Strict return precautions were discussed. I completed a HEART Score to screen for Major Adverse Cardiac Event (MACE) in this patient. The evidence indicates that the patient is very low risk for MACE and this is consistent with my clinical intuition. The risk of further workup or hospitalization for MACE is likely higher than the risk of the patient having a MACE. It is, therefore, in the patient?s best interest not to do additional emergent testing or to be hospitalized for MACE at this time. Shared Decision-Making No hospitalization indicated I have discussed with the patient my clinical impression and the result of the HEART Score to screen for MACE, as well as the risks of further testing and hospitalization. The HEART Score shows that the risk for MACE is less than 1%. Although the risk of MACE has not been completely eliminated, the risks of further testing or hospitalization for MACE likely exceed any potential benefit, and the patient agrees with not pursuing further emergent evaluation or hospitalization for MACE at this time. The patient and/or family, caregivers express understanding. The patient and/or family, caregivers agrees with the plan. Total critical care time today provided was at least 0 minutes. This excludes s eparately billable procedures. Critical care time (if documented) is secondary to the patient having high probability of clinically significant/life threatening deterioration in the patient's condition which required my urgent intervention. Impression: 1. Epigastric abdominal pain 2. Elevated lipase 3. Elevated eosinophil count Disposition: [place] home Ender Leblanc, Lab Data Labs: Laboratory Results - last 24 hr 05/15/23 05/15/23 00:12 02:29 WBC 11.5 H RBC 5.18 Hgb 15.4 Hct 46.4 MCV 89.6 MCH 29.7 MCHC 33.2 RDW Std Deviation 42.2 RDW Coeff of Dima 13.0 Plt Count 270 MPV 9.2 Immature Gran % (Auto) 1.000 H Neut % (Auto) 41.8 L Lymph % (Auto) 25.8 Sibley % (Auto) 8.0 Eos % (Auto) 22.7 H Baso % (Auto) 0.7 Absolute Neuts (auto) 4.8 Absolute Lymphs (auto) 2.97 Nucleated RBC % 0 Sodium 140 Potassium 3.9 Chloride 106 Carbon Dioxide 27.0 Anion Gap 7 BUN 14 Creatinine 1.17 Estim Creat Clear Calc 79.49 Est GFR (MDRD) Af Amer 83 Est GFR (MDRD) Non-Af 69 BUN/Creatinine Ratio 12.0 Glucose 107 H Calcium 9.7 Total Bilirubin 0.70 Direct Bilirubin 0.19 AST 24 ALT 39 Alkaline Phosphatase 82 Troponin I High Sens 8 7 Total Protein 8.0 Albumin 4.3 Globulin 3.7 Lipase 180 H Radiography Diagnostic Testing: Clinical Impression(s) from Imaging Studies Chest X-Ray 05/15/23 00:16 IMPRESSION: No radiographic evidence of acute cardiopulmonary disease. Electronically Signed: Shawn Archibald MD at 0:41 EDT Reading Location ID and State: [address] [place] [address] Tel , Service support , Discharge Plan Triage Chief Complaint: Chest Pain ED Provider: Ender Leblanc Dx/Rx/DC Orders Instructions: ED Epigastric Pain Uncertain Cause Prescriptions: New ondansetron 4 mg tablet,disintegrating 4 mg PO Q8H PRN PRN (Reason: Nausea) Qty: 10 0RF No Action omeprazole 20 MG capsule 20 mg PO DAILY Patient Comments: acid reflux cyanocobalamin (vitamin B-12) [Vitamin B-12] 1,000 MCG tablet 1,000 mcg PO DAILY atenolol 25 mg tablet 25 mg PO DAILY Patient Comments: TAKE 1 TABLET BY MOUTH ONCE DAILY Stand Alone Forms: Work / School Excuse Primary Care Provider: Brandy Rodriguez Referrals: Brandy Rodriguez MD [Primary Care Provider] - Friend,Sixto, DO [Med Staff - Active Staff] - Activity Restrictions/Additional Instructions: Thank you for trusting us with your care today! Please take Tylenol (2 pills, 650 mg), ibuprofen (2 pills, 400 mg) for pain and fever control. Please take Zofran as needed for nausea Please continue taking omeprazole daily as prescribed. Please return to the emergency department if your symptoms change or worsen. Specifically if you lose consciousness. If you develop chest pain, if you feel more short of breath. Please follow with your primary care physician for further outpatient evaluation and management. Disposition Disposition: Home, Self Care Discharge Date/Time: 05/15/23 03:27
[2023-05-15] MEDS: Mag Hydrox/Al Hydrox/Simeth 30 ML UDC PO (00:30)
[2023-05-15] MEDS: Famotidine 200 MG/20 ML MDV 20 MG in 0.9% Normal Saline (Pres. free 8 ML 300 MG IV (00:31)
[2023-05-15] MEDS: Ondansetron 4 MG/2 ML Vial IV (00:31)
[2023-05-15 00:50] LABS: Absolute Lymphocyte Count 2.97 X10^3/uL (0.83-4.51); Absolute Neutrophil Count 4.8 X10^3/uL (2.0-7.7); Basophil# 0.08 X10^3/uL; Basophil% 0.7 % (0-1); Eosinophil# 2.61 X10^3/uL; Eosinophils% 22.7 % (0-5); Hematocrit 46.4 % (40-54); Hemoglobin 15.4 g/dL (13.0-16.5); Lymphocyte # 2.97 X10^3/ul (0.83-4.51); Lymphocyte % 25.8 % (19-41); Mean Corp Hgb Conc 33.2 g/dL (32-36); Mean Corpuscular Hgb 29.7 pg (27.0-32.0); Mean Corpuscular Volume 89.6 fL (80-94); Mean Platelet Vol. 9.2 fl (6.2-12.0); Monocyte# 0.92 X10^3/uL; NRBC Flagged by Analyzer 0 % (0-5); Neutrophil % 41.8 % (47-70); POSITIVE DIFFERENTIAL YES; Platelet Count 270 K/mm3 (150-450); RBC Distribution Width SD 42.2 fl (35.1-43.9); Red Blood Count 5.18 M/mm3 (4.6-6.2); White Blood Count 11.5 K/mm3 (4.4-11.0)
[2023-05-15 00:54] LABS: Anion Gap 7 (5-15); BUN 14 mg/dL (7-18); Calcium,Total 9.7 mg/dL (8.5-10.1); Chloride 106 mmol/L (98-107); Creatinine, Serum 1.17 mg/dL (0.70-1.30); EST Glomerular Filtration Rate 69 mL/min (>60); Est Glom Filt Rate - Afr Amer 83 mL/min (>60); Estimated Creatinine Clearance 79.49 ml/min; Glucose 107 mg/dL (74-106); Potassium 3.9 mmol/L (3.5-5.1); Sodium Level 140 mmol/L (136-145); Troponin-I HS (w/2H Reflex) 8 pg/mL (3.0-78.0)
[2023-05-15 01:07] LABS: AST(SGOT) 24 U/L (15-37); Alanine Aminotransfer ALT/SGPT 39 U/L (16-61); Albumin, Serum 4.3 g/dL (3.2-5.0); Alkaline Phosphatase 82 U/L (45-117); Bilirubin, Direct 0.19 mg/dL (0.00-0.30); Globulin 3.7 g/dL (2.2-4.2); Lipase 180 U/L (13-75)
[2023-05-15 01:11] LABS: Differential Indicated SCAN CRITERIA MET
[2023-05-15 02:22] LABS: Reflex Troponin-HS? (from REC) Y
[2023-05-15 03:12] LABS: Troponin-I HS 7 pg/mL (3.0-78.0)
== END 2023-05-15 03:27 | disposition home or self-care (01) ==
PROVIDERS: Emergency Provider Emergency Medicine; PCP Internal Medicine; Visit Provider Emergency Medicine
DX: R10.13 Epigastric pain (principal); K21.9 Gastro-esophageal reflux disease without esophagitis; I10 Essential (primary) hypertension; R74.8 Abnormal levels of other serum enzymes; R06.02 Shortness of breath; R07.9 Chest pain, unspecified
CPT/HCPCS: 71045; 80048; 80076; 83690; 84484; 85025; 93005; 96374; 96375; 99285; A4216; J2405; J3490

== ENCOUNTER 2024-02-03 17:15 | Emergency (ER) | payer OTHER, SELFPAY ==
[2024-02-03] VITALS (16 sets, daily range): BP systolic 110–119; BP diastolic 79–94; PULSE 76–97; RESP 11–23; TEMP 36.4–36.9; O2SAT 94–98; BMI 29.2
--- NOTE | 2024-02-03 17:47 | RAD_ITS ---
INDICATION: chest pain EXAMINATION/TECHNIQUE: X-RAY - XR Chest 2 Views COMPARISON: 05/15/2023 FINDINGS: LIFE-SUPPORT AND LINES: 1. None HEART AND VESSELS: The cardiac silhouette, pulmonary vasculature have normal appearance. No evidence of congestive failure. LUNGS AND PLEURAL SPACES: Lungs are clear. No focal infiltrate, consolidation or effusions. No evidence of pneumothorax. No pulmonary mass is noted. MEDIASTINUM AND HILAR REGIONS: No masses adenopathy noted. No areas of calcification. Visualized upper airway is normal in position. BONY ELEMENTS: No acute bony changes noted. RAD/Chest PA and Lateral IMPRESSION: 1. No evidence of acute cardiopulmonary process Electronically Signed: Samy Mcmahon MD at 18:56 EST ,
--- NOTE | 2024-02-03 17:47 | EKG12_ITS ---
Test Reason : CP Blood Pressure : */* mmHG Vent. Rate : 80 BPM Atrial Rate : 80 BPM P-R Int : 150 ms QRS Dur : 100 ms QT Int : 380 ms P-R-T Axes : 34 -15 13 degrees QTcB Int : 438 ms Normal sinus rhythm Incomplete right bundle branch block Borderline ECG Confirmed by KIN SIMMONS, MARLYS ([id number]), make up editor HARSHA ALEXIS ([id number]) on 02/06/2024 2:25:33 PM Referred By: UG Confirmed By: MARLYS SANDERSON MD
[2024-02-03 18:06] LABS: Absolute Lymphocyte Count 1.71 X10^3/uL (0.83-4.51); Absolute Neutrophil Count 4.9 X10^3/uL (2.0-7.7); Basophil# 0.04 X10^3/uL; Basophil% 0.5 % (0-1); Eosinophil# 0.77 X10^3/uL; Eosinophils% 9.3 % (0-5); Hematocrit 47.9 % (40-54); Hemoglobin 15.9 g/dL (13.0-16.5); Lymphocyte # 1.71 X10^3/ul (0.83-4.51); Lymphocyte % 20.6 % (19-41); Mean Corp Hgb Conc 33.2 g/dL (32-36); Mean Corpuscular Hgb 29.8 pg (27.0-32.0); Mean Corpuscular Volume 89.7 fL (80-94); Mean Platelet Vol. 9.2 fl (6.2-12.0); Monocyte# 0.89 X10^3/uL; Monocyte% 10.7 % (0-10); NRBC Flagged by Analyzer 0 % (0-5); Neutrophil # 4.87 X10^3/uL (2.7-7.7); Neutrophil % 58.5 % (47-70); Platelet Count 207 K/mm3 (150-450); RBC Distribution Width CV 12.9 % (11.6-14.6); RBC Distribution Width SD 41.9 fl (35.1-43.9); Red Blood Count 5.34 M/mm3 (4.6-6.2); White Blood Count 8.3 K/mm3 (4.4-11.0)
[2024-02-03 18:17] LABS: Anion Gap 7 (5-15); BUN 15 mg/dL (7-18); Calcium,Total 8.9 mg/dL (8.5-10.1); Chloride 109 mmol/L (98-107); Creatinine, Serum 1.15 mg/dL (0.70-1.30); EST Glomerular Filtration Rate 70 mL/min (>60); Est Glom Filt Rate - Afr Amer 85 mL/min (>60); Estimated Creatinine Clearance 79.55 ml/min; Glucose 102 mg/dL (74-106); Potassium 3.9 mmol/L (3.5-5.1); Sodium Level 138 mmol/L (136-145); Troponin-I HS (w/2H Reflex) 21 pg/mL (3.0-78.0)
[2024-02-03 19:14] LABS: D-Dimer Quantitative (DVT/PE) < 0.27 FEU/ug/m (0.27-0.49)
[2024-02-03] MEDS: Ipratropium/Albuterol Sulfate 3 ML AMPUL.NEB INHALATION (19:35)
[2024-02-03 19:57] LABS: Reflex Troponin-HS? (from REC) Y
[2024-02-03 20:25] LABS: Troponin-I HS 19 pg/mL (3.0-78.0)
--- NOTE | 2024-02-03 21:09 | EX.ED.DYSGE1 ---
HPI History of Present Illness Chief Complaint: Chest Pain Informant: patient Narrative Narrative: Patient is a 58-year-old male with history of GERD and recent diagnosis of COVID-19 presenting with chest discomfort. Patient states he developed cough and bodyaches on Saturday, 3 days ago. He had a telehealth visit on Saturday where he had a positive home COVID test was started on Paxlovid. He has had a fever up to 100.7. He has had mild cough. Has been hot and cold. This afternoon he woke up from a nap around 3 PM and felt tightness in his chest. He felt more short of breath. He came in for further evaluation. He denies any associate chest pain, swelling of his legs, history of DVT or pneumonia. Denies any nausea vomiting, abdominal pain or change in urine output. [facility] Medical History GERD (gastroesophageal reflux disease) Normal colonoscopy Hypertension Home Medications ?Medication ?Instructions ?Recorded ?Last Taken ?Type omeprazole 20 mg capsule,delayed 20 mg PO DAILY 08/24/13 08/23/13 History release cyanocobalamin (vitamin B-12) 1,000 mcg PO DAILY 10/28/16 Unknown History 1,000 mcg tablet (Vitamin B-12) atenolol 25 mg tablet 25 mg PO DAILY 09/14/21 Unknown History ondansetron 4 mg disintegrating 4 mg PO Q8H PRN PRN Nausea #10 tabs 05/15/23 Unknown Rx tablet albuterol sulfate 90 mcg/actuation 1 - 2 puff inhalation Q4H PRN PRN 02/03/24 Unknown Rx aerosol inhaler (Ventolin HFA) Wheezing #1 inh ergocalciferol (vitamin D2) 1,250 1,000 mcg PO QDAY 02/03/24 Unknown History mcg (50,000 unit) capsule (Vitamin D2) prednisone 20 mg tablet 40 mg (2 x 20 mg) PO DAILY #10 02/03/24 Unknown Rx TABLETS Allergy/AdvReac Type Severity Reaction Status Date / Time No Known Allergies Allergy Verified 02/03/24 17:17 Surgical History Hx of tonsillectomy Social History household members: spouse Smoking Status: Never smoker substance use type: does not use ROS ROS ED Constitutional Constitutional ED: Reports chills and fever(s) Eyes Eyes: Denies change in vision ENT ENT ED: Reports rhinorrhea and sore throat Cardiovascular Cardiovascular: Reports chest pain; Denies palpitations Respiratory/Chest Respiratory/Chest: Reports cough; Denies dyspnea Gastrointestinal Gastrointestinal: Denies abdominal pain, nausea or vomiting Musculoskeletal Musculoskeletal: Reports myalgias; Denies arthralgias Neurologic Neurologic: Denies weakness Hematologic/Lymphatic Hematologic/Lymphatic: Denies easy bleeding or easy bruising EXAM Physical Exam Const Vital Signs: 02/03/24 17:16 02/03/24 17:33 02/03/24 17:45 Temperature 97.5 F L Temperature Source Temporal Pulse Rate 95 91 86 Respiratory Rate 20 H 23 H 23 H Respiratory Pattern Blood Pressure 118/94 H Blood Pressure Mean 102 Pulse Ox 98 95 94 Oxygen Delivery Method Room Air 02/03/24 17:48 02/03/24 18:00 02/03/24 18:00 Temperature Temperature Source Pulse Rate Respiratory Rate 20 H Respiratory Pattern Blood Pressure 115/92 H 115/92 H Blood Pressure Mean 100 100 Pulse Ox 95 Oxygen Delivery Method Room Air Room Air 02/03/24 18:15 02/03/24 18:30 02/03/24 18:45 Temperature Temperature Source Pulse Rate 90 80 88 Respiratory Rate 18 17 22 H Respiratory Pattern Blood Pressure 118/88 H Blood Pressure Mean 97 Pulse Ox 96 94 94 Oxygen Delivery Method Room Air 02/03/24 19:00 02/03/24 19:13 02/03/24 19:15 Temperature Temperature Source Pulse Rate 80 92 84 Respiratory Rate 16 20 H 11 L Respiratory Pattern Normal Blood Pressure 117/89 H Blood Pressure Mean 98 Pulse Ox 95 95 Oxygen Delivery Method Room Air 02/03/24 19:30 02/03/24 19:45 02/03/24 20:00 Temperature Temperature Source Pulse Rate 76 94 91 Respiratory Rate 18 18 20 H Respiratory Pattern Blood Pressure 119/90 H 110/79 Blood Pressure Mean 100 91 Pulse Ox 95 94 96 Oxygen Delivery Method Room Air Room Air 02/03/24 21:00 02/03/24 21:52 Temperature 98.5 F Temperature Source Pulse Rate 89 97 Respiratory Rate 18 18 Respiratory Pattern Blood Pressure 114/84 H 112/91 H Blood Pressure Mean 94 98 Pulse Ox 96 96 Oxygen Delivery Method Room Air Positive well nourished and well developed General Appearance ED: well developed and NAD HEENT Reports TM's clear and moist mucous membranes HEENT Narrative: oral pharynx mildly injected. No tonsillar exudate Tympanic Membrane ED: Yes TM's clear Eyes PERRL Neck no lymphadenopathy, supple and no JVD Chest Wall inspection of chest normal Resp normal respiratory effort Resp Narrative: Mildly diminished at the bases Cardio regular rate and regular rhythm GI normal to inspection, nondistended, normoactive bowel sounds and non-tender Extremity normal to inspection Neuro oriented x3 Sensorium / Orientation: alert Motor Exam: Negative for general weakness Psych mental status grossly normal Skin no rashes or lesions noted and no wounds MDM MDM MDM Narrative Medical decision making narrative: Patient is evaluated for mild chest discomfort and shortness of breath. Was diagnosed with COVID-19 2 days ago and started having symptoms a day before that. Overall is well-appearing. Vital signs are normal. Differential includes secondary pneumonia, pulmonary emboli, ACS, pneumothorax or progression of his viral syndrome. Workup including CBC, BMP, delta high-sensitivity troponin, D-dimer and EKG as well as chest x-ray is obtained. Workup largely normal. Patient is given DuoNeb with improvement of his respiratory symptoms. Will be discharged home with albuterol inhaler and a prescription for prednisone. Discussed that if he finds himself not really using the DuoNeb and that his breathing continues to feel improved he does not need to start the steroids. He already has Paxlovid at home. He does not appear to be having any side effects from that I do not think need to stop this. We did discuss this. Is given return precautions. Discharged home in stable and improved condition. Lab Data Attestation: I reviewed the patient's lab results. Labs: Laboratory Results - last 24 hr 02/03/24 02/03/24 17:28 19:32 WBC 8.3 RBC 5.34 Hgb 15.9 Hct 47.9 MCV 89.7 MCH 29.8 MCHC 33.2 RDW Std Deviation 41.9 RDW Coeff of Dima 12.9 Plt Count 207 MPV 9.2 Immature Gran % (Auto) 0.400 Neut % (Auto) 58.5 Lymph % (Auto) 20.6 Cannon % (Auto) 10.7 H Eos % (Auto) 9.3 H Baso % (Auto) 0.5 Absolute Neuts (auto) 4.9 Absolute Lymphs (auto) 1.71 Nucleated RBC % 0 D-Dimer Quant (PE/DVT) < 0.27 L Sodium 138 Potassium 3.9 Chloride 109 H Carbon Dioxide 22.0 Anion Gap 7 BUN 15 Creatinine 1.15 Estim Creat Clear Calc 79.55 Est GFR (MDRD) Af Amer 85 Est GFR (MDRD) Non-Af 70 BUN/Creatinine Ratio 13.0 Glucose 102 Calcium 8.9 Troponin I High Sens 21 19 Radiography Chest X-Ray - ED: 2 View, Read by ED Physician, Read by Radiologist and No Acute Disease Diagnostic Testing: Clinical Impression(s) from Imaging Studies Chest X-Ray 02/03/24 17:47 IMPRESSION: 1. No evidence of acute cardiopulmonary process Electronically Signed: Samy Mcmahon MD at 18:56 EST Reading Location ID and State: [address] [place] [address] Tel , Service support , Rhythm Strip Rhythm Strip: Sinus Rhythm Rate: 80 Ectopy: None EKG Initial EKG: Attestation: I personally reviewed and interpreted this EKG as follows: Interpretation: Sinus Rhythm Comments: Normal sinus rhythm at a rate of 80 bpm Normal axis Incomplete right bundle branch block Normal ST segments Discharge Plan Triage Chief Complaint: Chest Pain ED Provider: Sana Ludwig Dx/Rx/DC Orders Clinical Impression: Chest tightness, Dyspnea, COVID-19 Instructions: ED Chest Pain, Noncardiac, ED Dyspnea Prescriptions: New albuterol sulfate [Ventolin HFA] 90 mcg/actuation HFA aerosol inhaler 1 - 2 puff inhalation Q4H PRN PRN (Reason: Wheezing) Qty: 1 0RF prednisone 20 mg tablet 40 mg PO DAILY Qty: 10 0RF No Action omeprazole 20 MG capsule 20 mg PO DAILY Patient Comments: acid reflux cyanocobalamin (vitamin B-12) [Vitamin B-12] 1,000 MCG tablet 1,000 mcg PO DAILY atenolol 25 mg tablet 25 mg PO DAILY Patient Comments: TAKE 1 TABLET BY MOUTH ONCE DAILY ondansetron 4 mg tablet,disintegrating 4 mg PO Q8H PRN PRN (Reason: Nausea) Qty: 10 0RF ergocalciferol (vitamin D2) [Vitamin D2] 1,250 mcg (50,000 unit) capsule 1,000 mcg PO QDAY Primary Care Provider: Brandy Rodriguez Referrals: Brandy Rodriguez MD [Primary Care Provider] - Activity Restrictions/Additional Instructions: Your workup was very reassuring and normal today. No signs of pneumonia, blood clot or heart strain. I suspect your symptoms are related to your respiratory infection (COVID). Use inhaler as needed to help with your shortness of breath and breathing. You have also been given a prescription for steroids if you continue to have worsening respiratory symptoms or develop wheezing. If your symptoms stay mild and improved with minimal use of inhaler you do not need to take the steroids. Print Language: Italian Disposition Disposition: Home, Self Care Discharge Date/Time: 02/03/24 21:56
== END 2024-02-03 21:56 | disposition home or self-care (01) ==
PROVIDERS: Emergency Provider Emergency Medicine; PCP Internal Medicine; Visit Provider Emergency Medicine
DX: U07.1 COVID-19 (principal); R06.00 Dyspnea, unspecified; R07.89 Other chest pain; K21.9 Gastro-esophageal reflux disease without esophagitis; I10 Essential (primary) hypertension; Z79.52 Long term (current) use of systemic steroids
CPT/HCPCS: 71046; 80048; 84484; 85025; 85379; 93005; 94640; 99284; A4216